=== PATIENT | male | born 2000 | race Caucasian/White ===

== ENCOUNTER 2020-03-11 12:42 | Emergency (ER) | payer OTHER ==
[~2020-03-11] VITALS: Ht 182.9 cm; Wt 68.2 kg
[2020-03-11 12:50] VITALS: BP 121/80; TEMP 98
[2020-03-11] MEDS ORDERED: CELEXA 20MG20 MG/TAB PO (13:01)
[2020-03-11 14:34] VITALS: PULSE 90
== END 2020-03-11 14:34 | disposition home or self-care (01) ==
LOC: COL.ER 12:42
DX: S61.210A Laceration without foreign body of right index finger without damage to nail, initial encounter (principal); F41.9 Anxiety disorder, unspecified; W26.8XXA Contact with other sharp object(s), not elsewhere classified, initial encounter; Y92.59 Other trade areas as the place of occurrence of the external cause